=== PATIENT | male | born 1990 | race Caucasian/White ===

== ENCOUNTER 2017-08-04 16:11 | Emergency (ER) | payer BC ==
[~2017-08-04] VITALS: Ht 195.6 cm; Wt 148.6 kg
[~2017-08-04 16:11] MED LIST: IBUPROFEN
[2017-08-04 16:13] VITALS: BP 133/85
[2017-08-04] MEDS ORDERED: KETOROLAC 30 MG/1 ML ONE (17:39)
[2017-08-04] MEDS ORDERED: CYCLOBENZAPRINE 10 MG TABLET ONE (17:41)
[2017-08-04] MEDS ORDERED: CYCLOBENZAPRINE 10 MG TABLET PO ONE (18:00)
[2017-08-04] MEDS ORDERED: KETOROLAC 30 MG/1 ML IM ONE (18:00)
== END 2017-08-04 17:59 | disposition home or self-care (01) ==
LOC: ED 17:50
DX: M54.41 Lumbago with sciatica, right side (principal)
CPT/HCPCS: 96372; 99283; J1885; J7512

== ENCOUNTER 2018-02-08 23:54 | Emergency (ER) | payer BC ==
[~2018-02-08] VITALS: Ht 195.6 cm; Wt 151.5 kg
[2018-02-09 00:14] VITALS: BP 141/94
[2018-02-09 01:45] LABS: BASOPHILS # (AUTO) 0.04 x10^3/uL (0-0.1); BASOPHILS % (AUTO) 0 % (0-1); EOSINOPHILS # (AUTO) 0.33 x10^3/uL (0-0.4); EOSINOPHILS % (AUTO) 3 % (1-7); LYMPHOCYTES # (AUTO) 3.65 x10^3/uL (1-3.4); LYMPHOCYTES % (AUTO) 29 % (22-44); MD NO; MEAN CORPUSCULAR HEMOGLOBIN 29.8 pg (27.5-34.5); MEAN CORPUSCULAR HGB CONC 34.1 g/dL (33.2-36.2); MEAN CORPUSCULAR VOLUME 87.2 fL (81-97); MEAN PLATELET VOLUME 7.6 fL (7.4-10.4); MONOCYTES # (AUTO) 0.61 x10^3/uL (0.2-0.8); MONOCYTES % (AUTO) 5 % (2-9); NEUTROPHILS % (AUTO) 63 % (42-75); PLATELET COUNT 324 x10^3/uL (130-400); RED BLOOD COUNT 5.03 x10^6/uL (4.38-5.82); RED CELL DISTRIBUTION WIDTH 13.7 % (9.4-14.8)
[2018-02-09 01:57] LABS: ALANINE AMINOTRANSFERASE 23 U/L (12-78); ALBUMIN 3.7 g/dL (3.4-5.0); ANION GAP 5 mmol/L (5-15); CALCIUM 8.8 mg/dL (8.5-10.1); CHLORIDE 109 mmol/L (98-107)
[2018-02-09 01:59] LABS: ALKALINE PHOSPHATASE 63 U/L (45-117); BILIRUBIN,TOTAL 0.2 mg/dL (0.2-1.0); TOTAL PROTEIN 7.7 g/dL (6.4-8.2)
[2018-02-09 01:59] LABS: MICROSCOPIC NOT IND
[2018-02-09 02:08] LABS: CULTURE INDICATED? NO
[2018-02-09] MEDS ORDERED: ONDANSETRON ODT 4 MG ONE (02:10)
[2018-02-09] MEDS ORDERED: IBUPROFEN 200 MG TABLET ONE (02:10)
[2018-02-09] MEDS ORDERED: IBUPROFEN 200 MG TABLET PO ONE (02:30)
[2018-02-09] MEDS ORDERED: ONDANSETRON ODT 4 MG PO ONE (02:30)
[2018-02-09] MEDS ORDERED: OXYcodone/APAP 10/325MG TABLET PO ONE (03:00)
[2018-02-09] MEDS ORDERED: OXYcodone/APAP 10/325MG TABLET ONE (03:24)
== END 2018-02-09 03:40 | disposition home or self-care (01) ==
LOC: ED 02-09 03:30
DX: R33.9 Retention of urine, unspecified (principal); F17.200 Nicotine dependence, unspecified, uncomplicated; R10.31 Right lower quadrant pain
CPT/HCPCS: 36415; 80053; 81003; 85025; 99284; J7512; Q0162

== ENCOUNTER 2018-08-31 10:23 | Emergency (ER) | payer SELFPAY ==
[~2018-08-31] VITALS: Ht 195.6 cm; Wt 150.0 kg
[2018-08-31 10:29] VITALS: BP 139/87
== END 2018-08-31 11:37 | disposition home or self-care (01) ==
LOC: ED 11:28
DX: S43.402A Unspecified sprain of left shoulder joint, initial encounter (principal); V49.49XA Driver injured in collision with other motor vehicles in traffic accident, initial encounter; Y93.89 Activity, other specified; Y92.89 Other specified places as the place of occurrence of the external cause; Y99.8 Other external cause status
CPT/HCPCS: 99283

== ENCOUNTER 2019-02-13 14:55 | Emergency (ER) | payer MEDICAID, OTHER ==
[~2019-02-13] VITALS: Ht 198.1 cm; Wt 149.6 kg
[2019-02-13 15:01] VITALS: BP 160/85
== END 2019-02-13 16:35 | disposition home or self-care (01) ==
LOC: ED 16:29
DX: G89.29 Other chronic pain (principal); M54.5 Low back pain
CPT/HCPCS: 99281